=== PATIENT | female | born 1985 | race Hispanic/Latino ===

== ENCOUNTER 2017-03-20 20:46 | Emergency (ER) | payer OTHER ==
[~2017-03-20 20:46] MED LIST: DOCUSATE SODIU100 MG PO; FERROUS SULFAT325 M1 PO; IBUPROFEN800 MG PO; VITAFOL OB PO
[2017-03-20 20:56] VITALS: BP 144/96
--- NOTE | 2017-03-20 21:43 | ULTRASOUND REPORT ---
EXAMINATION: US TRANSVAGINAL CLINICAL INFORMATION: Pelvic pain. Has a control implant in arm. COMPARISON: None TECHNIQUE: Transabdominal and transvaginal ultrasound pelvis is performed. FINDINGS: On transabdominal ultrasound the uterus is anteverted. There is intrauterine gestational sac seen. Within the gestational sac is a small yolk sac measuring 0.2 cm. The cervical length measures 3.2 cm and is closed. On transvaginal ultrasound the gestational sac measures 1.6 cm in length. There is visualization of pole with a crown-rump length of 0.47 cm corresponding to 6 weeks and 2 days. THOM is 11/11/2017. heart rate measures 121 bpm. Right ovary measures 4.0 x 2.6 x 2.7 cm with a corpus luteal cyst measuring 2.6 x 1.5 x 2.0 cm. Normal vascular flow seen in right ovary on Doppler exam. Left ovary measures 3.5 x 1.6 x 2.5 cm. There are small follicular cysts seen. Normal vascular flow seen to left ovary on Doppler study. IMPRESSION: Solitary live intrauterine pole visualized within the gestational sac. The ultrasound gestational age is 6 weeks and 2 days based on a crown-rump length of 0.47 cm. heart rate measures 121 bpm.
--- NOTE | 2017-03-20 22:04 | ED GI/GU/ABDOMINAL COMPLAINT ---
History of Present Illness General Chief Complaint: Female Urogenital Problems Stated Complaint: "NEED ULTRASOUND FOR ETOPIC PREG." Source: patient Exam Limitations: no limitations Vital Signs & Intake/Output Vital Signs & Intake/Output Vital Signs Date Time Temp Pulse Resp B/P B/P Pulse O2 O2 Flow FiO2 Mean Ox Delivery Rate 03/20 2056 98.6 93 22 144/96 100 ED Intake and Output 03/21 0000 03/20 1200 Intake Total Output Total Balance Patient 133 lb Weight Allergies Coded Allergies: ketorolac (From TORADOL) (CP 03/20/17) Reconcile Medications Docusate Sodium 100 MG SGL 100 MG PO BID PRN STOOL SOFTENER Ferrous Sulfate 325 MG TAB 325 MG PO BID ANEMIA Ibuprofen 800 MG TABLET 800 MG PO Q6P PRN PAIN SCALE 4-6 VIT COMB.10/IRON/FA (Vitafol-Ob Caplet) 65 MG-1 MG TABLET 1 PO DAILY (Reported) Triage Note: PER PT HAD OUTPT LABS FOR , CALLED TO COME FOR US D/T PT HAS IMPLANT DOES NOT KNOW HOW SHE COULD BE . LMP 02/04 Triage Nurses Notes Reviewed? yes ? Y Is pt currently ? No HPI: Patient went to her terrazzo mechanic helper to have her control implant renewed. Patient was found to be . Patient was sent for outpatient blood work which showed a Quant of 15,000. Patient's terrazzo mechanic helper told her to go to the emergency room to rule out an ectopic . Patient has no pain. There is no vaginal bleeding. There is no spotting. There is no nausea or vomiting. Past History Travel History Traveled to [place] past 21 day No Medical History Any Pertinent Medical History? none Neurological: NONE EENT: NONE Cardiovascular: NONE Respiratory: NONE Gastrointestinal: NONE Hepatic: NONE Renal: NONE Musculoskeletal: NONE Psychiatric: NONE Endocrine: NONE Blood Disorders: NONE Cancer(s): NONE INDUSTRIAL DESIGNER/Reproductive: NONE Surgical History Surgical History: non-contributory Psychosocial History What is your primary language Georgian Tobacco Use: Never used ETOH Use: occasional use Illicit Drug Use: denies illicit drug use Family History Hx Contributory? No Review of Systems Review of Systems Constitutional: Reports: no symptoms. Respiratory: Reports: no symptoms. Cardiovascular: Reports: no symptoms. GI: Reports: no symptoms. Genitourinary: Reports: no symptoms. Neurological/Psychological: Reports: no symptoms. Immunologic/Allergic: Reports: no symptoms. Physical Exam Physical Exam General Appearance: well developed/nourished, alert, awake Eyes: Bilateral: PERRL, EOMI. Neck: normal inspection, supple Respiratory: normal breath sounds, chest non-tender, no respiratory distress, lungs clear Gastrointestinal: normal bowel sounds, soft, non-tender, no organomegaly Extremities: normal range of motion Neurologic/Psych: no motor/sensory deficits, awake, alert, oriented x 3, normal gait, normal mood/affect Core Measures ACS in differential dx? No Severe Sepsis Present: No Septic Shock Present: No Progress Differential Diagnosis: ectopic , intrauterine , threatened AB , UTI/pyelo Plan of Care: U/S Diagnostic Imaging: Viewed by Me: Ultrasound. Discussed w/RAD: Ultrasound. Radiology Impression: PATIENT: RADHA HOLLEY PRESENT AGE: 31 PATIENT ACCOUNT NO: [id number] : 86 LOCATION: [facility] ORDERING PHYSICIAN: CHRISTIAN NICOLE MD SERVICE DATE: 03/20/17 EXAM TYPE: US - US TRANSVAG EXAMINATION: US TRANSVAGINAL CLINICAL INFORMATION: Pelvic pain. Has a control implant in arm. COMPARISON: None TECHNIQUE: Transabdominal and transvaginal ultrasound pelvis is performed. FINDINGS: On transabdominal ultrasound the uterus is anteverted. There is intrauterine gestational sac seen. Within the gestational sac is a small yolk sac measuring 0.2 cm. The cervical length measures 3.2 cm and is closed. On transvaginal ultrasound the gestational sac measures 1.6 cm in length. There is visualization of pole with a crown-rump length of 0.47 cm corresponding to 6 weeks and 2 days. THOM is 11/11/2017. heart rate measures 121 bpm. Right ovary measures 4.0 x 2.6 x 2.7 cm with a corpus luteal cyst measuring 2.6 x 1.5 x 2.0 cm. Normal vascular flow seen in right ovary on Doppler exam. Left ovary measures 3.5 x 1.6 x 2.5 cm. There are small follicular cysts seen. Normal vascular flow seen to left ovary on Doppler study. IMPRESSION: Solitary live intrauterine pole visualized within the gestational sac. The ultrasound gestational age is 6 weeks and 2 days based on a crown-rump length of 0.47 cm. heart rate measures 121 bpm. DICTATED BY: JASWANT ISRAEL MD DATE/TIME DICTATED:03/20/172132 MATERIAL STOCKKEEPER YARD:PAVEL DATE/TIME TRANSCRIBED:2132 CONFIDENTIAL, DO NOT COPY WITHOUT APPROPRIATE AUTHORIZATION. < Electronically signed in Other Vendor System> SIGNED BY: JASWANT ISRAEL MD 2142 Initial ED EKG: none Departure Departure Disposition: HOME OR SELF CARE Condition: Stable Clinical Impression Primary Impression: Referrals: REESE POPE,JOSUE Pratt (PCP/Family) Additional Instructions: FOLLOW UP WITH YOUR OB DOCTOR RETURN FOR ANY CONCERNS Departure Forms: Customer Survey General Discharge Information
== END 2017-03-20 22:09 ==
LOC: ERH 20:46
DX: Z34.81 Encounter for supervision of other normal pregnancy, first trimester (principal)
CPT/HCPCS: 76817